=== PATIENT | male | born 1955 | race Caucasian/White ===

== ENCOUNTER 2023-03-24 01:08 | Day surgery (SDC) | payer MEDICARE ==
[2023-03-24 11:49] VITALS: BP 137/82
[2023-03-24] MEDS ORDERED: DOCUZEN 8.6-501 EACH PO (11:57)
[2023-03-24] MEDS ORDERED: Methocarbamol500 MG PO (11:58)
[2023-03-24] MEDS ORDERED: OXYC5 PO (12:00)
[2023-03-24] MEDS ORDERED: ASPI81CH PO (12:00)
[2023-03-24] MEDS ORDERED: DOCU100 PO (12:00)
[2023-03-24] MEDS ORDERED: DULO60 PO (12:00)
[2023-03-24] MEDS ORDERED: LORA10ER PO (12:01)
[2023-03-24] MEDS ORDERED: LOSA25 PO (12:01)
[2023-03-24] MEDS ORDERED: KRILL OIL500 MG PO (12:01)
[2023-03-24] MEDS ORDERED: MULTI-VITAMIN1 EAC2 PO (12:02)
[2023-03-24] MEDS ORDERED: MAGNESIUM CITR100 MG PO (12:02)
[2023-03-24] MEDS ORDERED: NAPR220 PO (12:03)
[2023-03-24] MEDS ORDERED: OMEP20ER PO (12:03)
== END 2023-03-24 12:10 | disposition home or self-care (01) ==
LOC: ATC 01:08
DX: T81.42XA Infection following a procedure, deep incisional surgical site, initial encounter (principal); L76.34 Postprocedural seroma of skin and subcutaneous tissue following other procedure; M48.062 Spinal stenosis, lumbar region with neurogenic claudication
CPT/HCPCS: 96365; J0696

== ENCOUNTER 2023-03-26 02:55 | Day surgery (SDC) | payer MEDICARE ==
[~2023-03-26 02:55] MED LIST: ASPI81CH PO; DOCU100 PO; DOCUZEN 8.6-501 EACH PO; DULO60 PO; KRILL OIL500 MG PO; LORA10ER PO; LOSA25 PO; MAGNESIUM CITR100 MG PO; MULTI-VITAMIN1 EAC2 PO; Methocarbamol500 MG PO; NAPR220 PO; OMEP20ER PO; OXYC5 PO
[2023-03-26 11:15] VITALS: BP 134/81
== END 2023-03-26 11:35 | disposition home or self-care (01) ==
LOC: ATC 02:55
DX: T81.42XA Infection following a procedure, deep incisional surgical site, initial encounter (principal); L76.34 Postprocedural seroma of skin and subcutaneous tissue following other procedure; M48.062 Spinal stenosis, lumbar region with neurogenic claudication; Y83.8 Other surgical procedures as the cause of abnormal reaction of the patient, or of later complication, without mention of misadventure at the time of the procedure
CPT/HCPCS: J0696

== ENCOUNTER 2023-03-27 04:51 | Day surgery (SDC) | payer MEDICARE ==
[2023-03-27 11:05] VITALS: BP 132/76
== END 2023-03-27 11:35 | disposition home or self-care (01) ==
LOC: ATC 04:51
DX: T81.42XA Infection following a procedure, deep incisional surgical site, initial encounter (principal); L76.34 Postprocedural seroma of skin and subcutaneous tissue following other procedure; M48.062 Spinal stenosis, lumbar region with neurogenic claudication
CPT/HCPCS: 96365; J0696

== ENCOUNTER → 2023-03-30 | Outpatient (CLI) | payer MEDICARE ==
[2023-03-30 17:10] LABS: C-REACTIVE PROTEIN, EXT RANGE 1.22 mg/dL (0.000-0.300)
[2023-03-30 17:27] LABS: Albumin, Blood 3.4 g/dL (3.4-5.0); Bilirubin, Total 0.3 mg/dL (0.1-1.0); Bun/Creatinine Ratio 27.7 (12.0-20.0); Calcium, Blood 9.4 mg/dL (8.5-10.1); Creatinine, Blood 0.9 mg/dL (0.60-1.20); Globulin, Blood 3.4 g/dL (2.2-4.0); Potassium, Blood 4.5 mmol/L (3.5-5.5); Total Protein, Blood 6.8 g/dL (6.4-8.2)
[2023-03-31 11:08] LABS: BASOPHILS ABSOLUTE AUTO 0.15 K/mm3 (0.00-0.23); BASOPHILS PERCENT AUTO 2 % (0-2); EOSINOPHILS ABSOLUTE AUTO 0.27 K/mm3 (0.00-0.68); EOSINOPHILS PERCENT AUTO 3 % (0-6); Hematocrit 41.2 % (37.0-53.0); Hemoglobin 13.1 g/dL (13.5-17.5); IMMATURE GRAN ABSOLUTE AUTO 0.04 K/mm3 (0.00-0.10); IMMATURE GRAN PERCENT AUTO 0 % (0-1); LYMPHOCYTES ABSOLUTE AUTO 1.42 K/mm3 (0.84-5.20); LYMPHOCYTES PERCENT AUTO 16 % (21-46); MONOCYTES ABSOLUTE AUTO 0.92 K/mm3 (0.16-1.47); MONOCYTES PERCENT AUTO 10 % (4-13); Mean Corpuscular HGB 30.1 pg (26.0-34.0); Mean Corpuscular HGB Conc 31.8 g/dL (31.5-36.5); Mean Corpuscular Volume 95 fL (80-100); Mean Platelet Volume 10.2 fL (9.1-12.4); NEUTROPHILS ABSOLUTE AUTO 6.35 K/mm3 (1.96-9.15); NEUTROPHILS PERCENT AUTO 69 % (41-73); Platelet Count 749 K/mm3 (150-400); RDW Coefficient Variation 13.2 % (11.7-14.2); RDW Standard Deviation 46.2 fL (35.1-46.3); Red Blood Cell Count 4.35 M/mm3 (4.30-5.90); White Blood Cell Count 9.15 K/mm3 (4.00-11.30)
== END | disposition home or self-care (01) ==
LOC: LAB SHORT 15:10 → LAB 15:10
PROVIDERS: Internal Medicine Infectious Disease
DX: T81.42XA Infection following a procedure, deep incisional surgical site, initial encounter (principal); L76.34 Postprocedural seroma of skin and subcutaneous tissue following other procedure
CPT/HCPCS: 80053; 85025; 85651; 86140